=== PATIENT | male | born 1985 | race Caucasian/White ===

== ENCOUNTER 2020-09-19 15:05 | Emergency (ER) | payer MEDICAID, SELFPAY ==
[2020-09-19 15:08] VITALS: BP 147/71; PULSE 96; RESP 16; TEMP 36.6; O2SAT 99; BMI 26.4
--- NOTE | 2020-09-19 15:30 | PC.NURSE ---
1st call to ed, not in wr or br
== END 2020-09-19 16:00 | disposition left against medical advice (07) ==
PROVIDERS: Emergency Provider Emergency Medicine; PCP Physician Assistant Medical
DX: K08.89 Other specified disorders of teeth and supporting structures (principal)
CPT/HCPCS: 99281; 99282

== ENCOUNTER 2020-09-22 14:18 | Emergency (ER) | payer MEDICAID, SELFPAY ==
[2020-09-22 14:28] VITALS: BP 116/76; PULSE 124; RESP 16; TEMP 36.9; O2SAT 96; BMI 26.6
--- NOTE | 2020-09-22 14:41 | ED_ITS ---
HPI - URI/Sore Throat General Chief Complaint: Dental/Oral Stated Complaint: Short of Breath Time Seen by Provider: 09/22/20 14:28 Source: patient Mode of arrival: ambulatory Limitations: no limitations History of Present Illness HPI Narrative: 35-year-old male with a past medical history of depression, asthma, non-Hodgkin's lymphoma in remission, recent oral surgery with 9 teeth removed at [facility] 4 days ago, presenting to the ED complaining of productive cough and SOB worse on exertion x couple days. Denies complications recent surgery. Denies fever, chills, chest pain, LE edema, history of blood clots, n ausea/vomiting. Reports taking Motrin around the clock for dental pain. Reports post-op dental pain, denies intraoral infection/drainage Related Data Allergies Allergy/AdvReac Type Severity Reaction Status Date / Time bee pollen [BEE STINGS] Allergy Severe ANAPHYLAXIS Verified 09/22/20 14:28 cat dander [CATS] Allergy Mild SNEEZING/RUNNY Verified 09/22/20 14:28 NOSE dog dander [DOGS] Allergy Mild SNEEZING/RUNNY Verified 09/22/20 14:28 NOSE cefaclor [From CECLOR] Allergy Unknown FATAL Verified 09/22/20 14:28 Review of Systems Review of Systems: Constitutional: No Weight loss, No Fever ENT/Mouth: No Ear Pain, No Nasal Congestion, No Swallowing Difficulty Cardiovascular: No Chest Pain, + SOB, + Dyspnea on Exertion, No Orthopnea, No Edema Respiratory: + Cough, + Sputum Gastrointestinal: No Nausea, No Vomiting, No Diarrhea, No Constipation, No Abdominal pain Genitourinary: No irregular bleeding, No Dysuria, No Urinary Frequency, No Hematuria Musculoskeletal: No joint pain, No Myalgias, No Joint Swelling Skin: No Skin Lesions, No rash Yes all other systems are reviewed and are negative PMFSH Past Medical History Attestation statement: The following information was validated with the patient. Medical History (Updated 09/22/20 @ 15:28 by STEVIE Pascual) Depressed Non-Hodgkin lymphoma Social History Social History Advance Directives: No Advance Directives Information Provided: No Physical Exam Vital Signs: Vital Signs: Last Vital Signs Temp 98.4 F 09/22/20 14:28 Pulse 124 H 09/22/20 14:28 Resp 16 09/22/20 14:28 BP 116/76 09/22/20 14:28 Pulse Ox 96 09/22/20 14:28 Body Mass Index 26.6 Const: General: cooperative Orientation/consciousness: patient oriented x3 Limitations: no limitations HENMT: Other: Post op oral surgery with all teeth removed, sutures and packing in place. No signs of active infection/cellulitis. Mild gum swelling, no erythema, no friability, no fluctuance or induration Head: Yes normal to inspection Ears: hearing grossly normal bilaterally General nose exam: Normal external nose present Face and sinus: Yes normal facial exam Eyes: General: appearance normal, both eyes and all related structures EOM: EOMs intact bilaterally Neck: Neck: Yes normal visual inspection and Yes no meningeal signs Resp: Effort & Inspection: normal respiratory effort Auscultation: clear to auscultation bilaterally, no rales, no rhonchi and no wheezes Cardio: Rate: regular rate Heart sounds: S1 normal heart sound present and S2 normal heart sound present GI: Inspection: Yes normal to inspection Palpation (GI): Soft to palpation, nontender, no guarding and not rigid Skin: Rashes: no rashes Wounds: no wounds Neuro: General: patient oriented x3 and no meningeal signs Gait exam (Neuro): Normal gait present Extrem: General: Yes normal to inspection Course Course Course Narrative: * Patient eloped the ED prior to any workup MDM - URI/Sore Throat MDM Narrative Medical decision making narrative: 35-year-old male with a past medical history of depression, asthma, non-Hodgkin's lymphoma in remission, recent oral surgery with 9 teeth removed at [facility] 4 days ago, presenting to the ED complaining of productive cough and SOB worse on exertion x couple days. On exam tachycardic, NAD/nontoxic appearing, lungs CTA, no LE edema or calf tenderness. Concern for viral syndrome/COVID-19 vs PE with recent surgical procedure/history of non- Hodgkin's lymphoma vs pneumonia. Lower concern for ACS. Plan: EKG, labs, CXR, COVID-19 testing, reassess Discharge Plan Discharge Clinical Impression: SOB (shortness of breath), Cough Patient Disposition: Elopement Interventions: ED Discharge Assessment Last Done: 09/22/20 15:11 Discharge Date/Time: 09/22/20 15:16
== END 2020-09-22 15:16 | disposition left against medical advice (07) ==
PROVIDERS: Emergency Provider Emergency Medicine; PCP Physician Assistant Medical
DX: R06.02 Shortness of breath (principal); R05 Cough; G89.18 Other acute postprocedural pain; K08.89 Other specified disorders of teeth and supporting structures
CPT/HCPCS: 99283